=== PATIENT | female | born 1990 | race Caucasian/White ===

== ENCOUNTER → 2022-08-01 | Outpatient (CLI) | payer OTHER, SELFPAY ==
[2022-08-04 02:07] LABS: Chlamydia By Nucleic Acid AMP Negative (Negative)
[2022-08-04 21:57] LABS: Gonococcus By Nucleic Acid AMP Negative (Negative)
[2022-08-05 16:06] LABS: HPV APTIMA, High Risk Negative (Negative)
== END | disposition home or self-care (01) ==
PROVIDERS: Referring Provider Registered Nurse; Visit Provider Registered Nurse
DX: Z01.419 Encounter for gynecological examination (general) (routine) without abnormal findings (principal); Z11.3 Encounter for screening for infections with a predominantly sexual mode of transmission
CPT/HCPCS: 87491; 87591; 87624; 88175; G0145

== ENCOUNTER → 2022-08-18 | Outpatient (CLI) | payer OTHER, SELFPAY ==
--- NOTE | 2022-08-18 10:51 | US_ITS ---
INDICATION: irregular bleeding EXAMINATION: Ultrasound US Transvaginal Non-OB TECHNIQUE: Transvaginal (for optimal evaluation of the adnexa) pelvic ultrasound was performed. Grayscale, spectral waveform, and color flow Doppler evaluation of the adnexa. COMPARISON: None. FINDINGS: UTERUS: The uterus measures 8.8 x 3.7 x 4.6 cm. There is no uterine mass. The endometrial stripe measures 7.6 mm in AP diameter which is within normal limits. There is a grossly simple-appearing fluid within the lower uterine segment within the endometrial cavity. RIGHT OVARY: 1.8 x 3.2 x 1.9 cm. There is a simple 1.1 x 0.9 x 1.2 cm cyst. Non-enlarged, normal echogenicity. There is normal arterial inflow and venous outflow present in the right ovary. LEFT OVARY: 2.7 x 2.7 x 1.6 cm. There is a simple 1.2 x 0.9 x 1.7 cm cyst. Non-enlarged, normal echogenicity. There is normal arterial inflow and venous outflow present in the left ovary. FREE FLUID: None. US/Transvaginal Non- IMPRESSION: Grossly simple-appearing fluid within the endometrial cavity of the lower uterine segment. Simple ovarian cysts measuring up to 1.2 cm bilaterally. Electronically Signed: Marge Phillips MD at 8:09 EST ,
== END | disposition home or self-care (01) ==
PROVIDERS: Visit Provider Registered Nurse
DX: N92.0 Excessive and frequent menstruation with regular cycle (principal)
CPT/HCPCS: 76830